=== PATIENT | female | born 1985 | race Asian ===

== ENCOUNTER 2018-10-21 23:14 | Emergency (ER) | payer SELFPAY ==
[~2018-10-21] VITALS: Ht 160 cm; Wt 51.7 kg
[2018-10-21 23:41] VITALS: BP_SYST 110
[2018-10-21] MEDS ORDERED: IBUPROFEN 800 MG TABLET PO ONE (23:45)
[2018-10-21] MEDS ORDERED: DIPHENHYDRAMINE INJ 50 MG/ML VIAL IM ONE (23:45)
--- NOTE | 2018-10-21 23:45 | NUR ---
Patient to ER bed 08 to gown for evaluation. Side rails up.
--- NOTE | 2018-10-21 23:46 | NUR ---
Patient AOx4, ambulatory, presents to ER with complaint of sudden onset nasal congestion since last night. Per patient the nasal congestion worsens when breathing through he mouth. Patient also states chest congestion, bilateral ear pressure, dizziness, and CRUZ 7/10. Patient medicated with an inhailer but was ineffective and Benadryl for itchiness. Patient has hx of bronchitis and asthma. Boyfriend at bedside.
--- NOTE | 2018-10-21 23:46 | NUR ---
ER MD Hennessy at bedside for medical evaluation.
[2018-10-21] MEDS ORDERED: ALBU8.5H8 INH (23:48)
[2018-10-22 00:20] VITALS: BP_SYST 112
--- NOTE | 2018-10-22 00:20 | NUR ---
Patient given written and verbal discharge instructions and verbalizes understanding. ER MD discussed with patient the results and treatment provided. Patient in stable condition. ID arm band removed. Rx of Oxymetazoline, Motrin, and Benadryl given. Patient educated on pain management and to follow up with PMD. Pain Scale 0/10. Opportunity for questions provided and answered. Medication side effect fact sheet provided.
== END 2018-10-22 00:20 | disposition home or self-care (01) ==
LOC: SED 23:14
DX: J30.9 Allergic rhinitis, unspecified (principal)
CPT/HCPCS: 96372; 99283; J1200